=== PATIENT | female | born 1965 | race Caucasian/White ===

== ENCOUNTER 2018-04-25 17:46 | Emergency (ER) | payer BC ==
[2018-04-25 18:32] VITALS: BP 131/83
[2018-04-25] MEDS ORDERED: Lidocaine 1%* 5 ML VIAL INJ ONE (19:25)
--- NOTE | 2018-04-25 19:25 | UC ---
Skin Complaint HPI - HPI Summary HPI Summary: 52 y/o female presents to the urgent care c/o left arm pit w/ 2 red painful red lumps for the past week, Pt reports it started as one which is resolving and then 2 other developed next to it for the past 2 day. They are warm and painful to touch. Pain is 5/10. Pt had mild drainage s/p applying warm compresses. Pt had not taking anything to alleviate symptoms. pt denies Hx of MRSA, fever, SOB , chest pain, abdominal pain, N/V/D. Pt is PNC and sulfa allergic, but has taking Keflex PO in the past w/o any adverse reaction. 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 Negative: Fever, Chills Related History: Other: - shaving - Allergy/Home Medications Allergies/Adverse Reactions: Allergies Allergy/AdvReac Type Severity Reaction Status Date / Time Penicillins Allergy Hives Verified 04/25/18 18:33 Sulfa (Sulfonamide Allergy Hives Verified 04/25/18 18:33 Antibiotics) Home Medications: Home Medications Levothyroxine TAB* [Synthroid TAB*] 100 mcg PO DAILY 04/25/18 [History Confirmed 04/25/18] Lisinopril TAB* [Prinivil TAB 10 MG*] 10 mg PO DAILY 04/25/18 [History Confirmed 04/25/18] Venlafaxine EXT RELEASE CAP* [Effexor Xr CAP*] 150 mg PO DAILY 04/25/18 [ History Confirmed 04/25/18] Review of Systems Constitutional: Negative Skin: Rash - left axilla w/ a red painful lump Eyes: Negative ENT: Negative Respiratory: Negative Cardiovascular: Negative Gastrointestinal: Negative Genitourinary: Negative Motor: Negative Neurovascular: Negative Musculoskeletal: Negative Neurological: Negative Psychological: Negative Is Patient Immunocompromised?: No All Other Systems Reviewed And Are Negative: Yes PMH/Surg Hx/FS Hx/Imm Hx Previously Healthy: Yes Endocrine History: Hypothyroidism Cardiovascular History: Hypertension Psychological History: Depression - Surgical History Surgical History: Yes Surgery Procedure, Year, and Place: hysterectomy - Family History Known Family History: Positive: Hypertension Family History: hypothyrodism - Social History Occupation: Employed Full-time Lives: With Family Alcohol Use: Rare Substance Use Type: None Smoking Status (MU): Former Smoker Physical Exam - Summary Physical Exam Summary: Vital Signs Reviewed: Yes General: well developed, well nourished female sitting in the examining table w/ o any apparent distress Eye Exam: Normal Eyes: Positive: Conjunctiva Clear - PERRLA, EOMI, fundi grossly normal ENT: Positive: Normal ENT inspection, Hearing grossly normal, Pharynx normal, TMs normal Neck: Positive: Supple, Nontender, No Lymphadenopathy Respiratory: Positive: Chest non-tender, Lungs clear, Normal breath sounds, No respiratory distress Cardiovascular: Positive: RRR, No Murmur, Pulses Normal, Brisk Capillary Refill Abdomen Description: Positive: Nontender, No Organomegaly, Soft. Negative: CVA Tenderness (R), CVA Tenderness (L) Bowel Sounds: Positive: Present Musculoskeletal: Positive: Strength Intact, ROM Intact, No Edema Neurological: Positive: Alert, Muscle Tone Normal Psychological Exam: Normal Skin: Positive: left axilla w/ 2 erythematous pustules that are indurated and fluctuant, one adjacent to the other, tender to palpation, swollen, and warm to touch about .2.0cmcm in size. FROM of left arm, sensation is intact, capillary refill WNL, reflexes WNL Triage Information Reviewed: Yes Vital Signs: Initial Vital Signs Temp 98 F 04/25/18 18:28 Pulse 68 04/25/18 18:28 Resp 16 04/25/18 18:28 BP 131/83 04/25/18 18:28 Pulse Ox 100 04/25/18 18:28 Course/Dx - Course Course Of Treatment: 52 y/o female presents to the urgent care c/o left arm pit w/ 2 red painful red lumps for the past week, Pt reports it started as one which is resolving and then 2 other developed next to it for the past 2 day. They are warm and painful to touch. Pain is 5/10. Pt had mild drainage s/p applying warm compresses. Pt had not taking anything to alleviate symptoms. pt denies Hx of MRSA, fever, SOB, chest pain, abdominal pain, N/V/D. Pt is PNC and sulfa allergic, but has taking Keflex PO in the past w/o any adverse reaction.Hx obtained. Pt w/ an abscess in the left axilla. I&D of abscess procedure:The procedure was explained and consent obtained. [place] protocol performed. The wound was anesthetized with 4mL of [place] 1% with good anesthesia. Sterile drape and prep were done. The fluctuant center was incised with #11 blade scalpel. A mild amount of caseous material was expressed , then some blood . wound cultures obtained and sent to lab to r/o MRSA. The wound was probed for loculated areas and irrigated with normal saline. The wound was packed loosely with wick or left open. Bacitracin topical ointment applied and wound covered with sterile dressing. The patient tolerated the procedure well. Pt Rx Keflex PO and Bacitracin oint, and ibuprofen PO for pain. Advised to return to the urgent care for wound check up in 2 days. Pt advised fever develops and pain increase despite ABX to go immediately to the ER for further management. Pt understood and agreed with D/C instructions. Left the clinic ambulating A&OX3. - Differential Diagnoses - Skin Complaint Differential Diagnoses: Abscess, Cellulitis, Lymphadenitis - Diagnoses Provider Diagnoses: 1- I&D of Left axilla abscess Discharge - Sign-Out/Discharge Documenting (check all that apply): Patient Departure - D/C home - Discharge Plan Condition: Stable Disposition: HOME Prescriptions: Bacitracin OINTMENT* 1 applic TOPICAL BID #1 tube Cephalexin CAP* [Keflex CAP*] 500 mg PO QID #28 cap Patient Education Materials: Abscess (ED) Referrals: Rosalba Grady DO [Primary Care Provider] - 2 Days Additional Instructions: 1-Please take full course of antibiotic to avoid resistance. Keep wound clean and dry with a sterile dressing. Apply bacitracin topical as directed 2- F/u wound check up in 2 days with your PCP or at the urgent care for removal of packing 3-. Take Ibuprofen PO q6-8hrs prn for pain or swelling. 4-If you develop fever or redness despite antibiotic please go to the ER immediately or return to the Urgent care. 5- Wound culture sent to lab, if any abnormal result you will receive a call from us. - Billing Disposition and Condition Condition: STABLE Disposition: Home
== END 2018-04-25 20:10 | disposition home or self-care (01) ==
LOC: UCEAST 17:46
DX: L02.412 Cutaneous abscess of left axilla (principal); B95.61 Methicillin susceptible Staphylococcus aureus infection as the cause of diseases classified elsewhere; Z88.0 Allergy status to penicillin; Z88.2 Allergy status to sulfonamides; E03.9 Hypothyroidism, unspecified; I10 Essential (primary) hypertension; F32.9 Major depressive disorder, single episode, unspecified
CPT/HCPCS: 10060; 87070; 87205; 87640; 87641; 99212; G0463

== ENCOUNTER 2018-04-27 16:26 | Emergency (ER) | payer BC ==
[2018-04-27 16:37] VITALS: BP 126/77
--- NOTE | 2018-04-27 16:55 | ED ---
Skin Complaint - HPI Summary HPI Summary: 52-year-old female presents for packing recheck today. States she had packing placed 2 days ago for an abscess. She states there has been pus drainage from the area. She denies any fevers. She denies any spreading redness. She states that the edema of the area has been going down. - History of Current Complaint Chief Complaint: UCSkin Time Seen by Provider: 04/27/18 16:46 Stated Complaint: PACKING REMOVAL Hx Last Menstrual Period: [employer] Pain Intensity: 1 - Allergy/Home Medications Allergies/Adverse Reactions: Allergies Allergy/AdvReac Type Severity Reaction Status Date / Time Penicillins Allergy Hives Verified 04/27/18 16:37 Sulfa (Sulfonamide Allergy Hives Verified 04/27/18 16:37 Antibiotics) PMH/Surg Hx/FS Hx/Imm Hx Endocrine/Hematology History: Reports: Hx Thyroid Disease - hypothyroid Cardiovascular History: Reports: Hx Hypertension - Surgical History Surgery Procedure, Year, and Place: hysterectomy Infectious Disease History: No Infectious Disease History: Denies: Traveled Outside the [place] in Last 30 Days - Family History Known Family History: Positive: Hypertension Family History: hypothyrodism - Social History Alcohol Use: Rare Substance Use Type: Reports: None Smoking Status (MU): Former Smoker Review of Systems Negative: Fever Negative: Chest Pain Negative: Shortness Of Breath Positive: Other - left armpit abscess All Other Systems Reviewed And Are Negative: Yes Physical Exam Triage Information Reviewed: Yes Vital Signs On Initial Exam: Initial Vitals Temp Pulse Resp BP Pulse Ox 98.2 F 82 16 126/77 100 04/27/18 16:33 04/27/18 16:33 04/27/18 16:33 04/27/18 16:33 04/27/18 16:33 Vital Signs Reviewed: Yes Appearance: Positive: Well-Appearing Skin: Positive: Warm, Dry, Other - packing in place left arm with pus drainage with surround 2cm by 3cm abscess with no surrounding erythema Head/Face: Positive: Normal Head/Face Inspection Eyes: Positive: Normal, Conjunctiva Clear ENT: Positive: Pharynx normal Respiratory/Lung Sounds: Positive: Clear to Auscultation, Breath Sounds Present Cardiovascular: Positive: Normal, RRR Musculoskeletal: Positive: Normal Neurological: Positive: Normal Psychiatric: Positive: Normal Diagnostics - Vital Signs Vital Signs Temp Pulse Resp BP Pulse Ox 04/27/18 16:33 98.2 F 82 16 126/77 100 - Laboratory Lab Statement: Any lab studies that have been ordered have been reviewed, and results considered in the medical decision making process. Course/Dx - Course Course Of Treatment: 52-year-old female presents for packing recheck today. States she had packing placed 2 days ago for an abscess. She states there has been pus drainage from the area. She denies any fevers. She denies any spreading redness. She states that the edema of the area has been going down. On exam has 2 cm by 3cm abscess of left axilla with packing placed. removed packing and got 1 cc of pus from the area. Will have place heat on the area. Told to continue antibiotic. Patient understands and agrees the plan. - Differential Diagnoses - Skin Complaint Differential Diagnoses: Abscess, Cellulitis, Contact Dermatitis - Diagnoses Provider Diagnoses: Abscess re-check Discharge - Sign-Out/Discharge Documenting (check all that apply): Patient Departure - Discharge Plan Condition: Good Disposition: HOME Patient Education Materials: Abscess Follow-up (ED) Referrals: Rosalba Grady DO [Primary Care Provider] - Additional Instructions: Continue antibiotic place heat on the area Take tyenlol or ibuprofen every 6 hours for pain If starts to get worse or develop fever go to the ED - Billing Disposition and Condition Condition: GOOD Disposition: Home
== END 2018-04-27 17:10 | disposition home or self-care (01) ==
LOC: UCEAST 16:26
DX: L02.412 Cutaneous abscess of left axilla (principal); I10 Essential (primary) hypertension; Z88.0 Allergy status to penicillin; Z88.2 Allergy status to sulfonamides; Z87.891 Personal history of nicotine dependence
CPT/HCPCS: 99212; G0463

== ENCOUNTER 2024-08-02 07:33 | Observation (INO) ==
[2024-08-02] MEDS ORDERED: LORazepam 2 mg VIAL 1 ml ONE (07:38)
[2024-08-02] MEDS: LORazepam 2 mg VIAL 1 ml IV PUSH ONE (07:42)
[2024-08-02] MEDS ORDERED: Lorazepam PYXIS KEY PRN ×2 (07:43→10:59)
[2024-08-02 08:28] LABS: ABS Lymphocytes 2.5 10^3/uL (1.0-4.8); ABS Monocytes 1.1 10^3/uL (0.0-0.9); ABS Neutrophils 11.1 10^3/uL (1.5-7.6); Eosinophil % 0.1 %; Hematocrit 38.4 % (35-45); Hemoglobin 11.7 g/dL (11.5-14.3); Lymphocyte % 16.8 %; Mean Corpuscular Hemoglobin 24.5 pg (27-33); Mean Corpuscular Hgb Conc 30.4 g/dL (31-36); Mean Corpuscular Volume 80.7 fL (80-97); Mean Platelet Volume 8.1 fL (7.5-11.2); Platelet Count 384 10^3/uL (150-450); Red Blood Count 4.76 10^6/uL (3.63-4.92); Red Cell Distribution Width 16.1 % (12-17); White Blood Count 14.7 10^3/uL (3.8-11.8)
[2024-08-02 08:46] LABS: ALT 15 U/L (7-52); AST 16 U/L (13-39); Acetaminophen < 15 mcg/mL; Albumin/Globulin Ratio 1.2 (1-3); Alcohol, S < 13 mg/dL (<13); Alkaline Phosphatase 97 U/L (35-149); Anion Gap 24 mmol/L (2-16); Blood Urea Nitrogen 26 mg/dL (6-24); C Reactive Protein 3.84 mg/L (<8.01); CO2 Carbon Dioxide 16 mmol/L (22-32); Calcium 9.3 mg/dL (8.6-10.3); Chloride 99 mmol/L (101-111); Creatinine, Serum 1.19 mg/dL (0.51-0.95); Globulin 3.4 g/dL (2-4); Glucose 103 mg/dL (70-100); Lipase 55 U/L (11.0-82.0); Magnesium 2.5 mg/dL (1.9-2.7); Potassium 3.7 mmol/L (3.5-5.0); Salicylate < 2.50 mg/dL (<30); Sodium 139 mmol/L (135-145); Total Bilirubin 0.3 mg/dL (0.2-1.0); Total Protein 7.4 g/dL (6.4-8.9); eGFR CKD-EPI 52.7 (>60)
[2024-08-02 08:52] LABS: High Sens Troponin Baseline 31 pg/mL (<15)
[2024-08-02] MEDS: NS 0.9% 1000 ml BAG 1,000 ML IV ONE (09:21)
[2024-08-02 09:25] LABS: High Sensitivity Troponin 1 Hr 35 pg/mL (<15)
[2024-08-02 10:38] LABS: Creatine Kinase 87 U/L (10-223)
[2024-08-02] MEDS ORDERED: LORazepam 2 mg VIAL 1 ml IV PUSH PRN (10:59)
[2024-08-02] MEDS: Lactated Ringers 1000 ml BAG 1,000 ML IV SCH (11:25)
[2024-08-02] MEDS: Iodixanol 320 (CONTRAST) 100 ML SDV IV ONE (11:52)
[2024-08-02] MEDS: Ondansetron 4 mg VIAL 2 MG/ML 2 ml VIAL IV PRN (12:06)
[2024-08-02 14:23] LABS: High Sensitivity Troponin 1 Hr 55 pg/mL (<15)
[2024-08-02] MEDS ORDERED: Sulfur Hexaflouride MICROSPHR 25 MG VIAL IV PRN (14:41)
[2024-08-02] MEDS: Gadoteridol (CONTRAST) 279.3 MG/ML 10 ML IV ONE (15:32)
[2024-08-02 17:14] LABS: High Sensitivity Troponin 3 Hr 34 pg/mL (<15)
[2024-08-02] MEDS: Enoxaparin 40 MG/0.4 ML SYR SUBCUT SCH (21:34)
[2024-08-03 06:22] LABS: ABS Basophils 0.1 10^3/uL (0.0-0.1); ABS Eosinophils 0.1 10^3/uL (0.0-0.5); ABS Monocytes 0.6 10^3/uL (0.0-0.9); ABS Neutrophils 4.9 10^3/uL (1.5-7.6); Eosinophil % 1.5 %; Hematocrit 32.9 % (35-45); Hemoglobin 10.5 g/dL (11.5-14.3); Lymphocyte % 25.7 %; Mean Corpuscular Hemoglobin 24.8 pg (27-33); Mean Corpuscular Hgb Conc 31.8 g/dL (31-36); Mean Platelet Volume 7.9 fL (7.5-11.2); Platelet Count 264 10^3/uL (150-450); Red Blood Count 4.22 10^6/uL (3.63-4.92); Red Cell Distribution Width 15.3 % (12-17); White Blood Count 7.6 10^3/uL (3.8-11.8)
[2024-08-03 06:24] LABS: Urine Appearance Clear; Urine Bilirubin Negative (Negative); Urine Blood Negative (Negative); Urine Color Colorless; Urine Glucose Negative (Negative); Urine Ketones Negative (Negative); Urine Nitrite Negative (Negative); Urine Protein Negative (Negative); Urine Specific Gravity 1.014 (1.002-1.030); Urine Urobilinogen Negative (Negative); Urine pH 5.5 (5.0-8.0)
[2024-08-03 06:37] LABS: C Reactive Protein 24.47 mg/L (<8.01); Calcium 8.6 mg/dL (8.6-10.3); Creatinine, Serum 0.95 mg/dL (0.51-0.95); Potassium 3.8 mmol/L (3.5-5.0)
[2024-08-03] MEDS: Gadoteridol (CONTRAST) 279.3 MG/ML 10 ML IV ONE (11:53)
[2024-08-04 07:15] LABS: ABS Basophils 0.1 10^3/uL (0.0-0.1); ABS Eosinophils 0.2 10^3/uL (0.0-0.5); ABS Lymphocytes 1.5 10^3/uL (1.0-4.8); ABS Monocytes 0.6 10^3/uL (0.0-0.9); ABS Nucleated RBC 0.01 10^3/ul; Eosinophil % 3.5 %; Hematocrit 31.7 % (35-45); Hemoglobin 10.4 g/dL (11.5-14.3); Mean Corpuscular Hemoglobin 25.4 pg (27-33); Mean Corpuscular Hgb Conc 32.7 g/dL (31-36); Mean Corpuscular Volume 77.7 fL (80-97); Nucleated Red Blood Cells % 0.1 %/100WBC (0.0-0.8); Platelet Count 218 10^3/uL (150-450); Red Blood Count 4.08 10^6/uL (3.63-4.92); White Blood Count 5.4 10^3/uL (3.8-11.8)
[2024-08-04 07:45] LABS: Calcium 8.2 mg/dL (8.6-10.3); Creatinine, Serum 0.92 mg/dL (0.51-0.95); Magnesium 1.9 mg/dL (1.9-2.7); Potassium 3.8 mmol/L (3.5-5.0); eGFR CKD-EPI 71.7 (>60)
[2024-08-04 09:34] VITALS: BP 104/57
[2024-08-05 16:41] LABS: Anaplasma phagocytophilum Negative (Negative); B. miyamotoi PCR, B Negative (Negative); Babesia divergens/MO-1 Negative (Negative); Babesia ducani Negative (Negative); Ehrlichia chaffeensis Negative (Negative); Ehrlichia ewingii/canis Negative (Negative); Ehrlichia muris eauclairensis Negative (Negative)
[2024-08-09 23:59] LABS: Pyridoxal 5-Phosphate (PLP), P 4 mcg/L (5-50)
== END 2024-08-04 13:23 | disposition home or self-care (01) ==
LOC: EDHOLD 07:33 → ED 07:33 → MED 12:08
PROVIDERS: ADMIT Internal Medicine; ATTEND Internal Medicine